=== PATIENT | female | born 1970 | race Caucasian/White ===

== ENCOUNTER 2018-08-12 16:12 | Emergency (ER) | payer OTHER ==
[2018-08-12 16:19] VITALS: BP 150/90; PULSE 76; TEMP 98.3; BMI 34.5
--- NOTE | 2018-08-12 16:41 | PDOC ---
History of Present Illness - General Chief Complaint: Eye Problem Stated Complaint: REDNESS AND PAIN TO EYE Time Seen by Provider: 08/12/18 16:30 History Source: Patient Exam Limitations: No Limitations - History of Present Illness Initial Comments: 08/12/18 16:34 c/o one week "red eyes" , itchy with stye to left upper lid. Pt wears contacts , no changes in contact lenses. Pt denies any change in makeup or anything new. no fever no allergy symptoms. Timing/Duration: 1 week Severity: mild Past History - Travel Traveled outside of the country in the last 30 days: No Close contact w/someone who was outside of country & ill: No - Past Medical History Allergies/Adverse Reactions: Allergies Allergy/AdvReac Type Severity Reaction Status Date / Time No Known Allergies Allergy Verified 08/12/18 16:15 Home Medications: Ambulatory Orders Losartan Potassium [Cozaar -] 50 mg PO DAILY 08/12/18 Metoprolol Succinate [Toprol Xl] 25 mg PO DAILY 08/12/18 Polymyxin B Sulfate/Tmp [Polytrim Opthalmic Solution -] 2 drop OS Q6H #1 bottle 08/12/18 Sulfacetamide Sodium 10% [Bleph-10] 2 drop OD Q6H #1 bottle 08/12/18 COPD: No HTN: Yes - Suicide/Smoking/Psychosocial Hx Smoking Status: Yes Smoking History: Former smoker Have you smoked in the past 12 months: No Number of Cigarettes Smoked Daily: 10 Information on smoking cessation initiated: No 'Breaking Loose' booklet given: 07/01/14 Hx Alcohol Use: No Review of Systems - Review of Systems Able to Perform ROS?: Yes Is the patient limited Georgian proficient: No Constitutional: No: Symptoms Reported HEENTM: Yes: Symptoms Reported *Physical Exam - Vital Signs Last Vital Signs Temp Pulse Resp BP Pulse Ox 98.3 F 76 16 150/90 08/12/18 16:16 08/12/18 16:16 08/12/18 16:16 08/12/18 16:16 - Physical Exam General Appearance: Yes: Nourished, Appropriately Dressed HEENT: positive: EOMI, KATHLEEN, Other (left upper eye with stye, bilateral sclera with redness, no discharge conjunctiva mild pink ) Medical Decision Making - Medical Decision Making 08/12/18 16:36 cc: bilateral red eyes with itching stye to left upper eyelid most likely viral or allergic conjunctivitis pt will remove contacts and eye makeup when she gets home warm compresses to the left eye for the stye follow up with eye doctor next week as discussed *DC/Admit/Observation/Transfer Diagnosis at time of Disposition: Allergic conjunctivitis of both eyes Hordeolum externum (stye) Qualifiers: Laterality: left Eyelid: upper Qualified Code(s): H00.014 - Hordeolum externum left upper eyelid - Discharge Dispostion Disposition: HOME Condition at time of disposition: Good - Prescriptions Prescriptions: Polymyxin B Sulfate/Tmp [Polytrim Opthalmic Solution -] 2 drop OS Q6H #1 bottle Sulfacetamide Sodium 10% [Bleph-10] 2 drop OD Q6H #1 bottle - Referrals Referrals: Josseline Spring MD [Primary Care Provider] - - Patient Instructions Additional Instructions: eye drops as directed frequent warm compresses to the left eye avoid contacts or makeup until symptoms resolve see your eye doctor this week if worse - Post Discharge Activity
== END 2018-08-12 16:43 | disposition home or self-care (01) ==
LOC: JERFT 16:12
DX: H10.13 Acute atopic conjunctivitis, bilateral (principal); H00.014 Hordeolum externum left upper eyelid
CPT/HCPCS: 99281-25

== ENCOUNTER 2019-05-21 07:52 | Day surgery (SDC) | payer OTHER ==
[2019-05-21 08:29] VITALS: BMI 38.5
[2019-05-21 09:08] VITALS: TEMP 98.5
[2019-05-21 10:01] VITALS: BP 127/81; PULSE 71
--- NOTE | 2019-05-22 17:48 | PATH ---
Surgical Pathology Report Patient Name: DRAGAN STONE [facility]. Rec. #: [id number] /Age/Gender: 1970 (Age: 49) / F Account: [id number] Location: U-ENDOSCOPY Taken: 05/21/2019 Received: 05/21/2019 Reported: 05/22/2019 Physicians: Nguyễn Gregory M.D. Specimen(s) Received ANTRUM Clinical History Obesity. 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 IMMUNOHISTOCHEMICAL STAIN FOR H. PYLORI IS NEGATIVE. Electronically Signed Marcy Vazquez M.D. Gross Description Received in formalin, labeled "antrum" are 2 cha, irregular portions of soft tissue measuring 0.2 cm and 0.5 cm. in greatest dimension. The specimens are submitted in toto in one cassette. AE/05/21/2019 ebram/05/21/2019
== END 2019-05-21 10:10 | disposition home or self-care (01) ==
LOC: JASU-ENDO 07:52
PROVIDERS: ATTEND Internal Medicine Gastroenterology
PROC: 0DB68ZX Excision of Stomach, Via Natural or Artificial Opening Endoscopic, Diagnostic (ICD-10-PCS; principal; 2019-05-21 08:45)
DX: Z01.818 Encounter for other preprocedural examination (principal); K29.50 Unspecified chronic gastritis without bleeding; K44.9 Diaphragmatic hernia without obstruction or gangrene; I10 Essential (primary) hypertension; E78.5 Hyperlipidemia, unspecified; E11.9 Type 2 diabetes mellitus without complications; G47.30 Sleep apnea, unspecified; Z99.89 Dependence on other enabling machines and devices
CPT/HCPCS: 88305-TC; 88342-TC

== ENCOUNTER 2020-11-01 20:23 | Emergency (ER) | payer OTHER ==
[2020-11-01 20:40] VITALS: BMI 24.7
[2020-11-01 21:40] LABS: BASO % 0.5 % (0-2.0); EOS % 1.6 % (0-4.5); HEMATOCRIT 42.5 % (32.4-45.2); HEMOGLOBIN 14.6 GM/dL (10.7-15.3); MCH 32.3 pg (25.7-33.7); MCHC 34.5 g/dl (32.0-36.0); MEAN CELL VOLUME 93.5 fl (80-96); MEAN PLT VOLUME 8.5 fl (7.5-11.1); MONO % 6.8 % (3.8-10.2); NEUT % 66.1 % (42.8-82.8); PLATELET COUNT 184 K/MM3 (134-434); RBC 4.54 M/mm3 (3.60-5.2); RDW 13.9 % (11.6-15.6); WHITE BLOOD COUNT 6.5 K/mm3 (4.0-10.0)
[2020-11-01 22:13] LABS: CHLORIDE 106 mmol/L (98-107); POTASSIUM 4.1 mmol/L (3.5-5.1); SODIUM 140 mmol/L (136-145)
[2020-11-01 22:16] LABS: ALBUMIN 3.8 g/dl (3.4-5.0); ANION GAP 4 MMOL/L (8-16); BLOOD UREA NITROGEN 17.7 mg/dL (7-18); CALCIUM 9.2 mg/dL (8.5-10.1); CO2 29 mmol/L (21-32); GLUCOSE,RANDOM 116 mg/dL (74-106); MAGNESIUM 1.9 mg/dL (1.8-2.4)
[2020-11-01 22:19] LABS: CREATININE 1.1 mg/dL (0.55-1.3); SGOT/AST 32 U/L (15-37); SGPT/ALT 33 U/L (13-61)
[2020-11-01 22:20] LABS: PHOSPHOROUS 3.2 mg/dL (2.5-4.9)
[2020-11-01 22:21] LABS: BILIRUBIN,TOTAL 0.3 mg/dL (0.2-1); TOT PROT 7.7 g/dl (6.4-8.2)
[2020-11-01 22:22] LABS: ALK PHOS 98 U/L (45-117)
[2020-11-01 22:38] VITALS: BP 125/86; PULSE 85; TEMP 98
== END 2020-11-01 22:40 | disposition home or self-care (01) ==
LOC: JER 20:23
DX: R00.2 Palpitations (principal)
CPT/HCPCS: 36415; 80053; 82550; 82553; 83735; 84100; 84439; 84443; 84484; 85025; 93005; 93010; 99284-25

== ENCOUNTER 2021-08-02 08:41 | Observation (INO) | payer OTHER ==
[2021-08-02 10:18] LABS: BASO % 0.6 % (0-2.0); EOS % 1.3 % (0-4.5); HEMATOCRIT 43.1 % (32.4-45.2); LYMPH % 27.7 % (8-40); MCH 32.5 pg (25.7-33.7); MCHC 34.7 g/dl (32.0-36.0); MEAN CELL VOLUME 93.6 fl (80-96); MEAN PLT VOLUME 8.1 fl (7.5-11.1); MONO % 7.8 % (3.8-10.2); NEUT % 62.6 % (42.8-82.8); PLATELET COUNT 174 10^3/uL (134-434); RDW 13.3 % (11.6-15.6); WHITE BLOOD COUNT 6.2 K/mm3 (4.0-10.0)
[2021-08-02 10:37] LABS: CHLORIDE 106 mmol/L (98-107); SODIUM 141 mmol/L (136-145)
[2021-08-02 10:39] LABS: CALCIUM 9.2 mg/dL (8.5-10.1)
[2021-08-02 10:40] LABS: ALBUMIN 3.7 g/dl (3.4-5.0); ANION GAP 5 MMOL/L (8-16); BLOOD UREA NITROGEN 13.7 mg/dL (7-18); CO2 31 mmol/L (21-32); GLUCOSE,RANDOM 92 mg/dL (74-106)
[2021-08-02 10:43] LABS: SGOT/AST 23 U/L (15-37); SGPT/ALT 27 U/L (13-61)
[2021-08-02 10:44] LABS: BILIRUBIN,TOTAL 0.5 mg/dL (0.2-1)
[2021-08-02 10:45] LABS: TOT PROT 7.5 g/dl (6.4-8.2)
[2021-08-02 10:46] LABS: ALK PHOS 93 U/L (45-117)
[2021-08-02] MEDS ORDERED: ACETAMINOPHEN 325 MG TABLET (FP) PO PRN (12:44)
[2021-08-02] MEDS ORDERED: PANTOPRAZOLE 40 MG TABLET ONE (20:03)
[2021-08-02] MEDS ORDERED: ENOXAPARIN NA (PORCINE) 40 MG/0.4 ML DISP.SYRIN SQ ONE (20:03)
[2021-08-02] MEDS: ENOXAPARIN NA (PORCINE) 40 MG/0.4 ML DISP.SYRIN SQ SCH (20:09)
[2021-08-02] MEDS: PANTOPRAZOLE 40 MG TABLET PO SCH (20:09)
[2021-08-03] MEDS ORDERED: MULTIVITAMINS THER W-MINERALS COMBO TABLET (FP) PO SCH (10:00)
[2021-08-03] MEDS ORDERED: ASCORBIC ACID 500 MG TABLET (FP) PO SCH (10:00)
[2021-08-03] MEDS ORDERED: VITAMIN A 10,000 UNITS (3000 MCG) CAPSULE PO SCH (10:00)
[2021-08-03] MEDS ORDERED: CHOLECALCIFEROL (VIT D3) 1,000 UNIT (25 MCG) TABLET PO SCH (10:00)
[2021-08-03] MEDS ORDERED: REGADENOSON 0.4 MG/5 ML PRE-FILLED SYRINGE IVPUSH ONE ×2 (10:06→10:15)
[2021-08-03] MEDS ORDERED: CHOLECALCIFEROL (VIT D3) 1,000 UNIT (25 MCG) TABLET ONE (12:00)
[2021-08-03] MEDS ORDERED: PANTOPRAZOLE 40 MG TABLET ONE (12:00)
[2021-08-03] MEDS ORDERED: ASCORBIC ACID 500 MG TABLET (FP) ONE (12:00)
[2021-08-03] MEDS ORDERED: PT OWN MED DRAWER 7, Y5N ONE (12:01)
[2021-08-03] MEDS ORDERED: ENOXAPARIN NA (PORCINE) 40 MG/0.4 ML DISP.SYRIN SQ ONE (12:01)
[2021-08-03] MEDS: ENOXAPARIN NA (PORCINE) 40 MG/0.4 ML DISP.SYRIN SQ SCH (12:07)
[2021-08-03] MEDS: PANTOPRAZOLE 40 MG TABLET PO SCH (12:07)
[2021-08-03 20:01] VITALS: BMI 23.2
[2021-08-03 22:12] VITALS: BP 147/67; PULSE 56; TEMP 97.8
== END 2021-08-04 02:06 | disposition short-term general hospital (02) ==
LOC: JER 08:41 → INTOOBSV 09:55 → JERBED 09:55 → J4W 08-03 18:11
PROVIDERS: ADMIT Internal Medicine; ATTEND Internal Medicine
PROC: 3E023GC Introduction of Other Therapeutic Substance into Muscle, Percutaneous Approach (ICD-10-PCS; principal; 2021-08-02)
PROC: 3E033GC Introduction of Other Therapeutic Substance into Peripheral Vein, Percutaneous Approach (ICD-10-PCS; 2021-08-02)
DX: R07.9 Chest pain, unspecified (principal); I10 Essential (primary) hypertension; E11.9 Type 2 diabetes mellitus without complications; F41.9 Anxiety disorder, unspecified; E78.5 Hyperlipidemia, unspecified; R06.02 Shortness of breath; F17.210 Nicotine dependence, cigarettes, uncomplicated; R20.2 Paresthesia of skin; R20.0 Anesthesia of skin; Z98.84 Bariatric surgery status; Z29.9 Encounter for prophylactic measures, unspecified
CPT/HCPCS: 36415; 71046-TC-FY; 78452-TC; 80053; 82550; 84484; 85025; 93005; 93010; 93017; 93306-TC; 96372; 96374; 99285-25; A9502; C9803; G0378; J2785; U0003; U0005

== ENCOUNTER 2021-11-11 13:03 | Emergency (ER) | payer OTHER ==
[2021-11-11 13:07] VITALS: BP 146/97; PULSE 73; TEMP 97.8; BMI 25.4
[2021-11-11] MEDS ORDERED: KETOROLAC TROMETHAMINE 30 MG/1 ML VIAL IM ONE (13:35)
[2021-11-11] MEDS ORDERED: KETOROLAC TROMETHAMINE 30 MG/1 ML VIAL ONE (13:38)
== END 2021-11-11 14:25 | disposition home or self-care (01) ==
LOC: JERFT 13:03
PROC: 3E0233Z Introduction of Anti-inflammatory into Muscle, Percutaneous Approach (ICD-10-PCS; principal; 2021-11-11)
DX: S20.211A Contusion of right front wall of thorax, initial encounter (principal); W10.9XXA Fall (on) (from) unspecified stairs and steps, initial encounter
CPT/HCPCS: 71046-TC-FY; 71101-TC-LT-FY; 71101-TC-RT-FY; 99285-25

== ENCOUNTER 2021-11-17 18:49 | Emergency (ER) | payer OTHER ==
[2021-11-17 18:57] VITALS: TEMP 98; BMI 25.0
[2021-11-17] MEDS ORDERED: KETOROLAC TROMETHAMINE 60 MG/2 ML VIAL IM ONE (19:33)
[2021-11-17] MEDS ORDERED: KETOROLAC TROMETHAMINE 60 MG/2 ML VIAL ONE (19:45)
[2021-11-17 21:17] VITALS: BP 157/97; PULSE 67
== END 2021-11-17 21:17 | disposition home or self-care (01) ==
LOC: JERFT 18:49
PROC: 3E023GC Introduction of Other Therapeutic Substance into Muscle, Percutaneous Approach (ICD-10-PCS; principal; 2021-11-17)
DX: S20.211A Contusion of right front wall of thorax, initial encounter (principal); W01.0XXA Fall on same level from slipping, tripping and stumbling without subsequent striking against object, initial encounter
CPT/HCPCS: 71046-TC-FY; 71111-TC-FY; 99284-25